=== PATIENT | female | born 1975 | race Caucasian/White ===

== ENCOUNTER 2017-06-28 13:52 | Emergency (ER) | payer MEDICARE, OTHER ==
[2017-06-28] MEDS: morphine 4 MG/ML VIAL IV (17:20)
[2017-06-28] MEDS: SOD CHLORIDE 0.9% 500 ML IV (17:33)
[2017-06-28 17:50] LABS: ADD MAN DIFF? NO
[2017-06-28 17:52] LABS: WHITE BLOOD COUNT 12.8 10^3/ul (4.8-10.8)
[2017-06-28 17:52] LABS: BASOPHILS % 0.3 % (0.0-2.0); EOSINOPHILS # 0.1 10^3/ul (0.0-0.5); EOSINOPHILS % 0.5 % (0.0-7.0); HEMATOCRIT 33.3 % (37.0-47.0); HEMOGLOBIN 11.4 g/dl (12.0-16.0); LYMPHOCYTES # 2.7 10^3/ul (0.8-2.9); LYMPHOCYTES % 20.9 % (15.0-51.0); MEAN CORPUSCULAR HEMOGLOBIN 28.3 pg (29.0-33.0); MEAN CORPUSCULAR HGB CONC 34.2 g/dl (32.0-37.0); MEAN CORPUSCULAR VOLUME 82.6 fl (82.0-101.0); MEAN PLATELET VOLUME 9.3 fl (7.4-10.4); MONOCYTE # 0.7 10^3/ul (0.3-0.9); MONOCYTES % 5.8 % (0.0-11.0); NEUTROPHIL # 9.2 10^3/ul (1.6-7.5); NEUTROPHILS % 72.1 % (39.0-77.0); PLATELET COUNT 336 10^3/UL (140-415); RED BLOOD COUNT 4.03 10^6/ul (4.20-5.40); RED CELL DISTRIBUTION WIDTH 14.8 % (11.5-14.5)
[2017-06-28] MEDS: SOD CHLORIDE 0.9% 100 ML (17:59)
[2017-06-28] MEDS: IOHEXOL 100 ML (18:00)
[2017-06-28 18:13] LABS: INR 1.46; PT RATIO 1.4
[2017-06-28 18:15] LABS: ALANINE AMINOTRANSFERASE 35 IU/L (13-69); ALBUMIN 4.3 g/dl (3.3-4.9); ALBUMIN/GLOBULIN RATIO 1.16; ALKALINE PHOSPHATASE 87 IU/L (42-121); ANION GAP 17 (8-16); ASPARTATE AMINO TRANSFERASE 27 IU/L (15-46); BILIRUBIN,INDIRECT 0.2 mg/dl (0-1.1); BILIRUBIN,TOTAL 0.2 mg/dl (0.2-1.3); BLOOD UREA NITROGEN 14 mg/dl (7-20); CARBON DIOXIDE 27 mmol/L (21-31); CHLORIDE 94 mmol/L (97-110); CREATININE 1.06 mg/dl (0.44-1.00); GLUCOSE 359 mg/dl (70-220); LIPASE 155 U/L (23-300); POTASSIUM 3.3 mmol/L (3.5-5.1); SODIUM 135 mmol/L (135-144)
[2017-06-28 18:26] LABS: TROPONIN-I < 0.012 ng/ml (0.00-0.12)
== END 2017-06-28 19:14 | disposition home or self-care (01) ==
LOC: E/R 13:52
DX: R06.02 Shortness of breath (principal); I10 Essential (primary) hypertension; E66.9 Obesity, unspecified; Z79.82 Long term (current) use of aspirin; Z79.01 Long term (current) use of anticoagulants; Z79.4 Long term (current) use of insulin
CPT/HCPCS: 36415; 71275; 80053; 83690; 84484; 84703; 85025; 85610; 96374; 99285-25

== ENCOUNTER 2017-10-08 17:24 | Emergency (ER) | payer MEDICARE, OTHER ==
[2017-10-08] MEDS: ONDANSETRON (ODT) 4 MG TAB ODT (19:11)
[2017-10-08] MEDS: HYDROCODONE/APAP (5/325) TAB PO (19:11)
[2017-10-08 19:33] LABS: ADD MAN DIFF? NO
[2017-10-08 19:34] LABS: BASOPHILS % 0.3 % (0.0-2.0); EOSINOPHILS % 0.5 % (0.0-7.0); HEMATOCRIT 38.6 % (37.0-47.0); HEMOGLOBIN 12.1 g/dl (12.0-16.0); LYMPHOCYTES # 1.7 10^3/ul (0.8-2.9); LYMPHOCYTES % 19.6 % (15.0-51.0); MEAN CORPUSCULAR HEMOGLOBIN 24.8 pg (29.0-33.0); MEAN CORPUSCULAR HGB CONC 31.3 g/dl (32.0-37.0); MEAN CORPUSCULAR VOLUME 79.3 fl (82.0-101.0); MONOCYTE # 0.5 10^3/ul (0.3-0.9); MONOCYTES % 6.1 % (0.0-11.0); NEUTROPHIL # 6.4 10^3/ul (1.6-7.5); NEUTROPHILS % 73.2 % (39.0-77.0); PLATELET COUNT 312 10^3/UL (140-415); RED BLOOD COUNT 4.87 10^6/ul (4.20-5.40); RED CELL DISTRIBUTION WIDTH 12.5 % (11.5-14.5)
[2017-10-08 19:34] LABS: WHITE BLOOD COUNT 8.8 10^3/ul (4.8-10.8)
[2017-10-08 19:54] LABS: ALANINE AMINOTRANSFERASE 24 IU/L (13-69); ALBUMIN 4.1 g/dl (3.3-4.9); ALBUMIN/GLOBULIN RATIO 1.13; ALKALINE PHOSPHATASE 77 IU/L (42-121); ANION GAP 19 (8-16); ASPARTATE AMINO TRANSFERASE 28 IU/L (15-46); BILIRUBIN,INDIRECT 0.5 mg/dl (0-1.1); BILIRUBIN,TOTAL 0.5 mg/dl (0.2-1.3); BLOOD UREA NITROGEN 9 mg/dl (7-20); CALCIUM 8.7 mg/dl (8.4-10.2); CARBON DIOXIDE 29 mmol/L (21-31); CHLORIDE 99 mmol/L (97-110); CREATININE 0.79 mg/dl (0.44-1.00); GLUCOSE 286 mg/dl (70-220); LIPASE 88 U/L (23-300); POTASSIUM 3.5 mmol/L (3.5-5.1); SODIUM 143 mmol/L (135-144); TOTAL PROTEIN 7.7 g/dl (6.1-8.1)
[2017-10-08 20:10] LABS: INR 0.96; PROTIME 12.9 Sec (11.9-14.9)
[2017-10-08 20:11] LABS: PARTIAL THROMBOPLASTIN TIME 28.4 Sec (25.0-35.0)
[2017-10-08 20:54] LABS: ADD UMIC YES; UR ASCORBIC ACID NEGATIVE (NEGATIVE); UR BACTERIA FEW /HPF (NONE SEEN); UR BILIRUBIN (Dip) NEGATIVE (NEGATIVE); UR BLOOD (Dip) NEGATIVE (NEGATIVE); UR CLARITY CLEAR (CLEAR); UR COLOR YELLOW (YELLOW); UR GLUCOSE (Dip) 3+ mg/dL (NEGATIVE); UR KETONES (Dip) NEGATIVE (NEGATIVE); UR LEUKOCYTE ESTERASE (Dip) NEGATIVE Leu/ul (NEGATIVE); UR NITRITE (Dip) POSITIVE (NEGATIVE); UR RBC 0 /HPF (0-5); UR SPECIFIC GRAVITY (Dip) 1.023 (1.003-1.030); UR SQUAMOUS EPITHELIAL CELL FEW /HPF (FEW); UR TOTAL PROTEIN (Dip) NEGATIVE (NEGATIVE); UR UROBILINOGEN (Dip) NEGATIVE (NEGATIVE); UR WBC 6 /HPF (0-5)
[2017-10-08] MEDS: KETOROLAC 60 MG INJ IM (21:13)
== END 2017-10-08 22:09 | disposition home or self-care (01) ==
LOC: FTE 17:24
DX: N39.0 Urinary tract infection, site not specified (principal); E11.9 Type 2 diabetes mellitus without complications; Z79.84 Long term (current) use of oral hypoglycemic drugs
CPT/HCPCS: 36415; 74176; 80053; 81001; 81025; 83690; 85025; 85610; 85730; 96372; 99285-25